=== PATIENT | female | born 1930 | race Caucasian/White ===

== ENCOUNTER 2016-05-07 08:48 | Inpatient (IN) | payer MEDICARE ==
[~2016-05-07] VITALS: Ht 147.3 cm; Wt 49.4 kg
[2016-05-07] MEDS ORDERED: LIDOCAINE 1% MDV 20 ML ONE (11:50)
[2016-05-07] MEDS ORDERED: CEFOTAXIME 2,000 MG in SODIUM CHLORIDE 0.9% 100 ML IV ONE (12:25)
[2016-05-07] MEDS ORDERED: ONDANSETRON 4 MG VIAL IV PUSH PRN (13:00)
[2016-05-07] MEDS ORDERED: SALINE FLUSH 10 ML FLUSH PRN (13:00)
[2016-05-07] MEDS ORDERED: PHARMACY TO DOSE CEFEPIME IV SCH (13:00)
[2016-05-07] MEDS ORDERED: ACETAMINOPHEN 325 MG TAB PO PRN (13:00)
[2016-05-07] MEDS ORDERED: SODIUM CHLORIDE 0.9% 1,000 ML IV SCH (13:00)
[2016-05-07] MEDS ORDERED: SODIUM CHLORIDE 0.9% 1,000 ML IV ONE (13:00)
[2016-05-07] MEDS ORDERED: ALBUMIN HUMAN 25GM (25%) 100 ML IV ONE ×3 (13:05)
[2016-05-07 16:20] VITALS: BP_SYST 111; BP_SYST 92; RESP 18; TEMP 97.4; Ht 147.3 cm; Wt 49.4 kg
[2016-05-07] MEDS ORDERED: [UNRECOGNIZED DRUG - REMARK] XX SCH (16:29)
[2016-05-07] MEDS: MIDODRINE 10 MG TAB PO SCH (17:00)
[2016-05-07 17:01] VITALS: RESP 16
[2016-05-07] MEDS: [UNRECOGNIZED DRUG - OTHER] IV SCH ×2 (17:01→21:45)
[2016-05-07] MEDS ORDERED: CEFEPIME 2000 MG/100 ML D5W 100 ML IV STA (17:24)
[2016-05-07] MEDS: Furosemide 100 MG/10 ML VIAL IV SCH (18:23)
[2016-05-07] MEDS: SALINE FLUSH 10 ML FLUSH SCH (20:00)
[2016-05-07 20:28] VITALS: BP_SYST 85; RESP 16; TEMP 97.4
[2016-05-08] VITALS (29 sets, daily range): BP systolic 90–117; RESP 10–23; TEMP 96.6–98.4
[2016-05-08] MEDS: SODIUM CHLORIDE 0.9% FLUSH BAG 500 ML IV SCH (06:31)
[2016-05-08] MEDS: MIDODRINE 10 MG TAB PO SCH ×3 (06:31→16:30)
[2016-05-08] MEDS ORDERED: DEXTROSE 50% 50 ML ONE (07:51)
[2016-05-08] MEDS ORDERED: DEXTROSE 50% SYRINGE 50 ML IV ONE (08:10)
[2016-05-08] MEDS ORDERED: humuLIN REG INSULIN IV PUSH ONE (08:10)
[2016-05-08] MEDS ORDERED: METOLAZONE 5 MG TAB PO ONE (08:55)
[2016-05-08] MEDS: Furosemide 100 MG/10 ML VIAL IV SCH (09:03)
[2016-05-08] MEDS: [UNRECOGNIZED DRUG - OTHER] IV SCH (09:03)
[2016-05-08] MEDS: SALINE FLUSH 10 ML FLUSH SCH ×2 (09:04→19:36)
[2016-05-08] MEDS ORDERED: DEXTROSE 5% IV ONE (09:45)
[2016-05-08] MEDS ORDERED: SODIUM BICARB 8.4% IV ONE (09:45)
[2016-05-08] MEDS ORDERED: METOLAZONE 5 MG TAB PO SCH (09:50)
[2016-05-08] MEDS ORDERED: PANTOPRAZOLE 80 MG in SODIUM CHLORIDE 0.9% 100 ML IV ONE (09:55)
[2016-05-08] MEDS: PANTOPRAZOLE 80 MG in SODIUM CHLORIDE 0.9% 250 ML IV SCH ×2 (10:53→19:29)
[2016-05-08] MEDS: BUMETANIDE 1 MG/4 ML VIAL IV SCH ×3 (12:14→23:26)
[2016-05-08] MEDS ORDERED: PHARMACY TO DOSE VANCOMYCIN IV SCH (13:00)
[2016-05-08] MEDS ORDERED: VANCOMYCIN 1,000 MG in SODIUM CHLORIDE 0.9% 250 ML IV ONE (13:35)
[2016-05-08] MEDS ORDERED: CEFEPIME 1,000 MG in SODIUM CHLORIDE 0.9% 100 ML IV SCH (18:00)
[2016-05-08] MEDS: SODIUM CHLORIDE 0.9% IV SCH (19:29)
[2016-05-08] MEDS: OCTREOTIDE IV SCH (19:29)
[2016-05-08] MEDS: METOLAZONE 5 MG TAB PO SCH (20:44)
[2016-05-09] VITALS (33 sets, daily range): BP systolic 85–149; RESP 9–31; TEMP 96.3–96.8
[2016-05-09] MEDS: SODIUM CHLORIDE 0.9% FLUSH BAG 500 ML IV SCH (04:14)
[2016-05-09] MEDS: PANTOPRAZOLE 80 MG in SODIUM CHLORIDE 0.9% 250 ML IV SCH (04:15)
[2016-05-09] MEDS: MIDODRINE 10 MG TAB PO SCH ×3 (06:37→16:32)
[2016-05-09] MEDS: BUMETANIDE 1 MG/4 ML VIAL IV SCH ×4 (06:37→23:41)
[2016-05-09] MEDS: SALINE FLUSH 10 ML FLUSH SCH ×2 (07:58→21:15)
[2016-05-09] MEDS ORDERED: ALBUMIN HUMAN 25GM (25%) 100 ML IV ONE ×2 (08:00)
[2016-05-09] MEDS: METOLAZONE 5 MG TAB PO SCH ×2 (08:01→21:12)
[2016-05-09] MEDS ORDERED: MISSING DOSE XX ONE (13:40)
[2016-05-09] MEDS ORDERED: PHARMACY TO DOSE LEVAQUIN IV SCH (14:15)
[2016-05-09] MEDS ORDERED: LEVOFLOXACIN 750 MG/150 ML 150 ML IV ONE (14:25)
[2016-05-09] MEDS: OCTREOTIDE IV SCH (15:53)
[2016-05-09] MEDS: SODIUM CHLORIDE 0.9% IV SCH (15:53)
[2016-05-09] MEDS: PANTOPRAZOLE 40 MG TAB PO SCH (16:32)
[2016-05-10] VITALS (21 sets, daily range): BP systolic 80–118; RESP 10–28; TEMP 95.4–97.5
[2016-05-10] MEDS ORDERED: MISSING DOSE XX ONE (04:25)
[2016-05-10] MEDS: OCTREOTIDE IV SCH (05:26)
[2016-05-10] MEDS: SODIUM CHLORIDE 0.9% FLUSH BAG 500 ML IV SCH (05:26)
[2016-05-10] MEDS: SODIUM CHLORIDE 0.9% IV SCH (05:26)
[2016-05-10] MEDS: BUMETANIDE 1 MG/4 ML VIAL IV SCH ×2 (06:34→19:38)
[2016-05-10] MEDS: MIDODRINE 10 MG TAB PO SCH ×2 (06:34→19:38)
[2016-05-10] MEDS: PANTOPRAZOLE 40 MG TAB PO SCH ×2 (06:34→16:00)
[2016-05-10] MEDS: METOLAZONE 5 MG TAB PO SCH (09:10)
[2016-05-10] MEDS: SALINE FLUSH 10 ML FLUSH SCH ×2 (09:10→22:02)
[2016-05-10] MEDS ORDERED: SODIUM CHLORIDE 0.9% 1,000 ML IV SCH (11:55)
[2016-05-10] MEDS ORDERED: ALBUMIN HUMAN 25GM (25%) 100 ML IV PRN (11:55)
[2016-05-10] MEDS ORDERED: ONDANSETRON 4 MG VIAL IV PRN (11:55)
[2016-05-10] MEDS ORDERED: SODIUM CHLORIDE 0.9% 1,000 ML IV PRN (11:55)
[2016-05-10] MEDS ORDERED: ONDANSETRON ODT 4 MG TAB PO PRN (13:35)
[2016-05-10] MEDS ORDERED: LORAZEPAM 0.5 MG TAB PO PRN (13:35)
[2016-05-10] MEDS ORDERED: MORPHINE 2 MG/ML SYR IV PRN ×2 (13:35→15:35)
[2016-05-10] MEDS ORDERED: LORAZEPAM 2 MG/ML VIAL IV PRN (14:40)
[2016-05-10] MEDS: MORPHINE 2 MG/ML SYR IV PRN ×3 (14:47→21:06)
[2016-05-11] MEDS: MORPHINE 2 MG/ML SYR IV PRN ×11 (00:05→20:51)
[2016-05-11] MEDS: PANTOPRAZOLE 40 MG TAB PO SCH ×2 (04:38→16:00)
[2016-05-11] MEDS: SODIUM CHLORIDE 0.9% FLUSH BAG 500 ML IV SCH ×2 (04:38→05:24)
[2016-05-11] MEDS: SALINE FLUSH 10 ML FLUSH SCH ×2 (07:29→19:44)
[2016-05-11] MEDS ORDERED: MISSING DOSE XX ONE (08:30)
[2016-05-11] MEDS ORDERED: LEVOFLOXACIN 500 MG/100 ML 100 ML IV SCH (09:00)
[2016-05-11 09:42] VITALS: BP_SYST 113; RESP 16; TEMP 97.4
[2016-05-11 09:45] VITALS: BP_SYST 113; RESP 16; TEMP 97.4
[2016-05-11 12:11] VITALS: BP_SYST 113; RESP 16; TEMP 97.4
[2016-05-11 12:40] VITALS: BP_SYST 113; RESP 16; TEMP 97.4
[2016-05-11 19:09] VITALS: BP_SYST 69; RESP 6; TEMP 97.1
== END 2016-05-11 21:12 | disposition hospice, home (50) | DRG 871 ==
LOC: ENRESERVTM → ENRESERVDT → ER 08:48 → EMR 13:14 → ENPENDDIS 13:14 → PCU 16:23 → CCU 05-08 14:46 → 4NT 05-10 18:08
PROVIDERS: ADMIT Internal Medicine; ATTEND Internal Medicine
PROC: 0W9G3ZX Drainage of Peritoneal Cavity, Percutaneous Approach, Diagnostic (ICD-10-PCS; principal; 2016-05-07)
DX: A41.9 Sepsis, unspecified organism (principal); R65.21 Severe sepsis with septic shock; K76.7 Hepatorenal syndrome; K65.2 Spontaneous bacterial peritonitis; E87.2 Acidosis; I13.0 Hypertensive heart and chronic kidney disease with heart failure and stage 1 through stage 4 chronic kidney disease, or unspecified chronic kidney disease; N17.9 Acute kidney failure, unspecified; K92.0 Hematemesis; N18.4 Chronic kidney disease, stage 4 (severe); D69.6 Thrombocytopenia, unspecified; I42.9 Cardiomyopathy, unspecified; I50.30 Unspecified diastolic (congestive) heart failure; E87.1 Hypo-osmolality and hyponatremia; E87.5 Hyperkalemia; Z66 Do not resuscitate; Z51.5 Encounter for palliative care; K72.90 Hepatic failure, unspecified without coma; E86.1 Hypovolemia; Z95.0 Presence of cardiac pacemaker; Z85.828 Personal history of other malignant neoplasm of skin; K21.9 Gastro-esophageal reflux disease without esophagitis
CPT/HCPCS: 36415; 71010; 76770; 80048; 80053; 81001; 82533; 82570; 82947; 83605; 83735; 83880; 84100; 84156; 84300; 85007; 85025; 85027; 85610; 85730; 87040; 87071; 87077; 87088; 87186; 87804; 89051; 93306; 94799; 96360; 96361; 96365; 96366; 96367; 99223; 99232; 99233; 99239; 99291